=== PATIENT | female | born 1975 | race Caucasian/White ===

== ENCOUNTER 2020-03-21 07:16 | Emergency (ER) | payer MEDICAID, SELFPAY ==
--- NOTE | ~2020-03-21 | XR_ITS ---
EXAMINATION: XR SHOULDER, LEFT CLINICAL INFORMATION: Left shoulder pain COMPARISON: None TECHNIQUE: AP external rotation, Grashey, scapular Y, and axillary views of the left shoulder. FINDINGS: There is nondisplaced fracture left acromion. The AC joint and the glenohumeral joint space is normal. The soft tissues are normal. XR/XR shoulder LT min 2V IMPRESSION: Nondisplaced fracture left acromion.
[2020-03-21 07:59] VITALS: BP 141/75; PULSE 68; RESP 18; O2SAT 99; BMI 30.2
--- NOTE | 2020-03-21 09:18 | ED_ITS ---
HPI - Extremity Problem General Chief complaint: Extremity Problem Stated complaint: L SHOULDER PAIN Time Seen by Provider: 03/21/20 08:15 Source: patient Mode of arrival: ambulatory Limitations: no limitations History of Present Illness HPI Narrative: 45-year-old female presenting to the ED with complaints of left shoulder pain for the past few months worse today. She reports that she had this in the past when she used to work for [employer] although she went to physical therapy and her symptoms improved moderately although not completely. Although now she is working for [employer] and due to heavy lifting and repetitive hand/arm movements she has been having pain. Although denies any falls or direct injuries to the actual joint of the left shoulder. Denies any fevers, neck pain/stiffness, paresthesias, numbness/tingling, chest pain, shortness of breath, palpitations, dyspnea on exertion, orthopnea or any other symptoms complaints or concerns at this time. MD Complaint: extremity pain Onset (ago): month(s) (A few months worse today) Pain Consistency: constant Location: left Quality: aching Relieving factors: nothing Exacerbating factors: range of motion Associated symptoms: denies other symptoms Related Data Previous Rx's Medication Instructions Recorded acetaminophen [Tylenol Extra 1,000 mg PO QID PRN #14 tab 03/21/20 Strength] cyclobenzaprine 10 mg PO TID PRN #10 tab 03/21/20 ibuprofen 800 mg PO Q8H PRN #14 tab 03/21/20 lidocaine [Lidoderm] 1 patch TOPICAL DAILY #15 ea 03/21/20 oxycodone 5 mg PO BID PRN #10 tab 03/21/20 Allergies Allergy/AdvReac Type Severity Reaction Status Date / Time No Known Allergies Allergy Unverified 10/25/19 15:57 [No Known Allergies*] Review of Systems Review of Systems: Constitutional : No Fever, No Chills ENT/Mouth : No Ear Pain, No Hoarseness, No sore throat Eyes: No Eye Pain, No Swelling, No Redness, No Foreign Body Cardiovascular : No Chest Pain, No SOB Respiratory : No Cough, No Dyspnea Gastrointestinal : No Nausea, No Vomiting, No Diarrhea, No abdominal Pain Genitourinary : No Dysuria, No Hematuria Musculoskeletal : + joint pain, No Myalgias, No Joint Swelling Skin : No Skin lacerations, No rash Neuro : No Weakness, No Numbness, No Paresthesias, No Loss of Consciousness, No Dizziness, No Headache Psych : No Anxiety/Panic, No Depression Heme/Lymph: no easy bruising, no Lymphadenopathy Endocrine : No Polyuria, No Polydipsia Yes all other systems are reviewed and are negative [facility] Past Medical History Attestation statement: The following information was validated with the patient. Medical History Acute injury of anterior cruciate ligament of right knee Acute injury of anterior cruciate ligament of right knee Depression Left shoulder strain Social History Social History Advance Directives: No Advance Directives Information Provided: Yes Physical Exam Vital Signs: Vital Signs: Last Vital Signs Pulse 68 03/21/20 07:59 Resp 18 03/21/20 07:59 BP 141/75 H 03/21/20 07:59 Pulse Ox 99 03/21/20 07:59 Body Mass Index 30.2 vital signs have been reviewed as normal and appeared to be correct. Blood pressure normal. Heart rate normal. Respiration rate normal. Temperature normal. Oxygen saturation normal. Appearance: Alert. Oriented X3. No acute distress. Head: Normal external exam. Normocephalic. Atraumatic. Eyes: PERRLA. EOMI. Conjunctiva and sclera normal. Eyelids normal. ENT: Pharynx normal. Uvula midline. Moist mucous membranes. No trismus noted. No drooling noted. No muffled voice noted. Neck: Normal inspection. Neck supple. FROM. No adenopathy. Thyroid Normal. No meningeal signs. No neck mass noted. CVS: Normal heart rate and rhythm. Heart sound normal. No murmurs noted. Pulses normal throughout. Respiratory: No respiratory distress. Painless inspiration. Breath sounds normal. No wheezes/rales/rhonchi noted. Chest nontender. No accessory muscle usage noted or decreased air movement noted. Back: Full range of motion noted. Skin: Skin warm and dry. Normal skin color. Normal skin turgor. No rashes/lesions/lacerations noted. Extremities: Patient tender to palpation at the AC joint with limited range of motion with internal abduction although normal range of motion for the rest of the exam. No obvious deformities noted. No crepitus noted. No laxity noted. Otherwise Extremities exhibit normal range of motion and nontender. Neuro: Oriented X 3. No motor deficit. No sensory deficit. Reflexes normal. Course Course Course Narrative: Patient had an x-ray to left shoulder which revealed nondisplaced fracture of the acromion Adonsi and GH joint spaces normal read by Dr. Saul. Will place in a splint and treat symptomatic Isabel give a work note and instructions to follow-up with orthopedics within the next 7-14 days. Patient understands agrees with this plan. MDM - Extremity (Nontraumatic) Medical Records Attestation: I reviewed the patient's medical records. Discharge Plan Discharge Clinical Impression: Acromial fracture Qualifiers: Encounter type: initial encounter Fracture type: closed Fracture alignment: nondisplaced Laterality: left Qualified Code(s): S42.125A - Nondisplaced fracture of acromial process, left shoulder, initial encounter for closed fracture Patient Disposition: Home, Self-Care Instructions: Scapular Fracture (ED) Prescriptions: New cyclobenzaprine 10 mg tablet 10 mg PO TID PRN (Reason: muscle spasm) Qty: 10 RF: 0 ibuprofen 800 mg tablet 800 mg PO Q8H PRN (Reason: pain) Qty: 14 RF: 0 acetaminophen [Tylenol Extra Strength] 500 mg tablet 1,000 mg PO QID PRN (Reason: fever or pain) Qty: 14 RF: 0 lidocaine [Lidoderm] 5 % adhesive patch,medicated 1 patch topical DAILY Qty: 15 RF: 0 oxycodone 5 mg tablet 5 mg PO BID PRN (Reason: pain) Qty: 10 RF: 0 Referrals: Ryan Mendieta MD [Physician] - 2 days Stand Alone Forms: Work/School Release Interventions: ED Discharge Assessment Last Done: 03/21/20 10:06 Discharge Date/Time: 03/21/20 10:07 Print Language: Russian
== END 2020-03-21 10:07 | disposition home or self-care (01) ==
PROVIDERS: Emergency Provider Emergency Medicine Emergency Medical Services; PCP Nurse Practitioner Family
DX: S42.125A Nondisplaced fracture of acromial process, left shoulder, initial encounter for closed fracture (principal); X50.0XXA Overexertion from strenuous movement or load, initial encounter; Y93.89 Activity, other specified; Y92.89 Other specified places as the place of occurrence of the external cause; Y99.0 Civilian activity done for income or pay
CPT/HCPCS: 73030; 99283

== ENCOUNTER 2020-04-10 20:35 | Emergency (ER) | payer MEDICAID, SELFPAY ==
--- NOTE | ~2020-04-10 | XR_ITS ---
EXAMINATION: XR SHOULDER, RIGHT CLINICAL INFORMATION: Pain status post injury COMPARISON: None TECHNIQUE: Two views of the right shoulder. FINDINGS: The bones and soft tissues are normal. No fracture. Glenohumeral and acromioclavicular alignment is anatomic with normal joint space. No abnormal soft tissue calcifications. XR/XR shoulder RT min 2V IMPRESSION: Normal right shoulder.
[2020-04-10 21:07] VITALS: BP 147/69; PULSE 71; RESP 16; TEMP 37.2; O2SAT 98; BMI 30.2
--- NOTE | 2020-04-10 21:54 | ED.EXTPRO ---
HPI - Extremity Problem General Chief complaint: Extremity Injury, Upper Stated complaint: WORK INJ - SHOULDER Time Seen by Provider: 04/10/20 21:32 Source: patient Mode of arrival: ambulatory Limitations: no limitations History of Present Illness HPI Narrative: 45-year-old female with past medical history of left acromion fracture presents with right shoulder pain after lifting heavy objects. Patient is in a sling for the left arm for current injury, states that she was trying to move some things around and heard a pop to the right shoulder. Patient is unable to abduct the right extremity past 90?. MD Complaint: extremity pain Onset (ago): hour(s) (Within the hour of arrival) Pain Consistency: constant Location: right Severity scale (1-10): 9 Quality: aching and constant Radiation: proximal Relieving factors: other (Pressure) Exacerbating factors: range of motion Associated symptoms: denies other symptoms Related Data Previous Rx's Medication Instructions Recorded acetaminophen [Tylenol Extra 1,000 mg PO QID PRN #14 tab 03/21/20 Strength] cyclobenzaprine 10 mg PO TID PRN #10 tab 03/21/20 ibuprofen 800 mg PO Q8H PRN #14 tab 03/21/20 lidocaine [Lidoderm] 1 patch TOPICAL DAILY #15 ea 03/21/20 oxycodone 5 mg PO BID PRN #10 tab 03/21/20 cyclobenzaprine 10 mg PO TID PRN #30 tab 04/10/20 Allergies Allergy/AdvReac Type Severity Reaction Status Date / Time No Known Allergies Allergy Verified 04/10/20 21:16 [No Known Allergies*] Review of Systems Review of Systems: Constitutional: No Fever, No Chills ENT/Mouth: No Ear Pain, No Hoarseness, No sore throat Eyes: No Eye Pain, No Swelling, No Redness, No Foreign Body Cardiovascular: No Chest Pain, No SOB Respiratory: No Cough, No Dyspnea Gastrointestinal: No Nausea, No Vomiting, No Diarrhea, No abdominal Pain Genitourinary: No Dysuria, No Hematuria Musculoskeletal: positive right shoulder pain, No Myalgias, No Joint Swelling Skin: No Skin lacerations, No rash Neuro: No Weakness, No Numbness, No Paresthesias, No Loss of Consciousness, No Dizziness, No Headache Psych: No Anxiety/Panic, No Depression Heme/Lymph: no easy bruising, no Lymphadenopathy Endocrine: No Polyuria, No Polydipsia Yes all other systems are reviewed and are negative [facility] Past Medical History Attestation statement: The following information was validated with the patient. Source: old records reviewed Medical History Acute injury of anterior cruciate ligament of right knee Acute injury of anterior cruciate ligament of right knee Depression Left shoulder strain Social History Social History Smoked in Last 30 Days: No Use of substances other than those prescribed or required for medical reasons: No Advance Directives: No Advance Directives Information Provided: No Physical Exam Vital Signs: Vital Signs: Last Vital Signs Temp 98.9 F 04/10/20 21:07 Pulse 71 04/10/20 21:07 Resp 16 04/10/20 21:07 BP 147/69 H 04/10/20 21:07 Pulse Ox 98 04/10/20 21:07 Body Mass Index 30.2 Appearance: Alert. Oriented X3. No acute distress. Eyes: Pupils equal, round and reactive to light. ENT: Pharynx normal. Neck: Normal inspection. Neck supple. CVS: Normal heart rate and rhythm. Pulses normal. Respiratory: No respiratory distress. Breath sounds normal. Abdomen: Soft and nontender. Skin: Skin warm and dry. Normal skin color. Normal skin turgor. Extremities: Left arm in a sling secondary to acromion avulsion fracture, right arm decreased range of motion for abduction adduction between 85? and 110?, decreased flexion and extension, strength 5/5 to the hand, able to pronate and supinate without difficulty. Brisk capillary refill neurovascularly intact. Neuro: No motor deficit. No sensory deficit. Cranial nerves 2-12 intact, gait well balanced well coordinated Course Course Course Narrative: 45-year-old female presents with a right shoulder injury currently in a sling for a left acromion avulsion fracture. Is being followed by doing with Orthopedics. Injury was sustained from moving heavy objects earlier today. Plan of care is for x-ray. X-ray negative for fracture, this is suspected labrum or rotator cuff injury. Will apply sling, patient does understand that she must follow-up with Orthopedics as she has bilateral shoulder injuries. She will call her current surgeon and request an evaluation tomorrow. We will refill her cyclobenzaprine prescription. Currently out of work due to other injury. Patient verbalized understanding of and agrees to plan of care to discharge home. MDM - Extremity (Nontraumatic) MDM Narrative Medical decision making narrative: Labrum tear, rotator cuff injury, avulsion fracture, dislocation, arthritis Medical Records Attestation: I reviewed the patient's medical records. Imaging Data Right shoulder: Attestation: I personally reviewed and interpreted this imaging study as follows: Radiologist's impression: EXAMINATION: XR SHOULDER, RIGHT CLINICAL INFORMATION: Pain status post injury COMPARISON: None TECHNIQUE: Two views of the right shoulder. FINDINGS: The bones and soft tissues are normal. No fracture. Glenohumeral and acromioclavicular alignment is anatomic with normal joint space. No abnormal soft tissue calcifications. XR/XR shoulder RT min 2V IMPRESSION: Normal right shoulder. Discharge Plan Discharge Clinical Impression: Rotator cuff dysfunction Patient Disposition: Home, Self-Care Instructions: Rotator Cuff Injury (ED) Additional Instructions: You were evaluated for injury sustained at work to the right rotator cuff. Please follow-up with orthopedics. Wear shoulder immobilizer as needed. Follow-up with your orthopedic surgeon. Use cyclobenzaprine as needed for muscle spasms. Cyclobenzaprine is a muscle relaxer and can reduce reaction time, cause drowsiness, and increased risk for falls. Do not drive or operate machinery while taking this medication. Thank you for choosing this emergency department for evaluation. Please follow-up with primary care physician as needed. Return to the emergency department for any new, concerning, or worsening symptoms. Prescriptions: New cyclobenzaprine 10 mg tablet 10 mg PO TID PRN (Reason: muscle spasm) Qty: 30 RF: 0 No Action cyclobenzaprine 10 mg tablet 10 mg PO TID PRN (Reason: muscle spasm) Qty: 10 RF: 0 ibuprofen 800 mg tablet 800 mg PO Q8H PRN (Reason: pain) Qty: 14 RF: 0 acetaminophen [Tylenol Extra Strength] 500 mg tablet 1,000 mg PO QID PRN (Reason: fever or pain) Qty: 14 RF: 0 lidocaine [Lidoderm] 5 % adhesive patch,medicated 1 patch topical DAILY Qty: 15 RF: 0 oxycodone 5 mg tablet 5 mg PO BID PRN (Reason: pain) Qty: 10 RF: 0 Interventions: ED Discharge Assessment Last Done: 04/10/20 22:18 Discharge Date/Time: 04/10/20 22:22
== END 2020-04-10 22:22 | disposition home or self-care (01) ==
PROVIDERS: Emergency Provider Internal Medicine
DX: S49.91XA Unspecified injury of right shoulder and upper arm, initial encounter (principal); M75.101 Unspecified rotator cuff tear or rupture of right shoulder, not specified as traumatic; X50.0XXA Overexertion from strenuous movement or load, initial encounter; Y93.9 Activity, unspecified; Y99.0 Civilian activity done for income or pay; Y99.9 Unspecified external cause status; Z79.899 Other long term (current) drug therapy
CPT/HCPCS: 73030; 99283; 99284

== ENCOUNTER 2020-07-17 14:25 | Emergency (ER) | payer MEDICAID, SELFPAY ==
--- NOTE | ~2020-07-17 | XR_ITS ---
EXAMINATION: XR ANKLE, LEFT CLINICAL INFORMATION: Trauma, pain COMPARISON: None TECHNIQUE: AP, lateral, and mortise views of the left ankle. FINDINGS: There is mild soft tissue swelling overlying the lateral malleolus. The malleoli appear intact and the ankle mortise is symmetric. There is no visible fracture or dislocation. There are bulky posterior and smaller plantar calcaneal spurs. XR/XR ankle LT min 3V IMPRESSION: 1. Lateral soft tissue swelling. No visible fracture or dislocation. 2. Posterior and plantar calcaneal spurs.
[2020-07-17 14:36] VITALS: BP 119/86; PULSE 76; RESP 18; TEMP 36.6; O2SAT 96; BMI 30.2
--- NOTE | 2020-07-17 17:12 | ED.LOWEXIN ---
HPI - Extremity Injury (Lower) General Chief Complaint: Extremity Injury, Lower Stated Complaint: left foot pain Time Seen by Provider: 07/17/20 15:50 Source: patient Mode of arrival: ambulatory Limitations: no limitations History of Present Illness HPI Narrative: 45-year-old female who presents to the emergency department with left ankle injury. Patient states on Tuesday she fell going down the stairs and twisted her left ankle. Since has had pain and discomfort. States she has tried elevation ice and compression without significant improvement. Due to concern she felt she needed to be seen. Patient is prescribed oxycodone for left shoulder injury for which she has been taking with minimal relief. Denies head injury or trauma from fall denies any other complaints or concerns that are new at this time. Related Data Previous Rx's Medication Instructions Recorded acetaminophen [Tylenol Extra 1,000 mg PO QID PRN #14 tab 03/21/20 Strength] cyclobenzaprine 10 mg PO TID PRN #10 tab 03/21/20 ibuprofen 800 mg PO Q8H PRN #14 tab 03/21/20 lidocaine [Lidoderm] 1 patch TOPICAL DAILY #15 ea 03/21/20 oxycodone 5 mg PO BID PRN #10 tab 03/21/20 cyclobenzaprine 10 mg PO TID PRN #30 tab 04/10/20 Allergies Allergy/AdvReac Type Severity Reaction Status Date / Time No Known Allergies Allergy Verified 04/10/20 21:16 [No Known Allergies*] Review of Systems Review of Systems: Constitutional : No Weight loss, No Fever, No Chills, No Night Sweats, No Fatigue, No Malaise ENT/Mouth : No Hearing loss, No Ear Pain, No Nasal Congestion, No Sinus Pain, No Hoarseness, No sore throat, No Rhinorrhea, No Swallowing Difficulty Eyes: No Eye Pain, No Swelling, No Redness, No Foreign Body, No Discharge, No Vision Changes Cardiovascular : No Chest Pain, No SOB, No Dyspnea on Exertion, No Orthopnea, No Edema, No Palpitations Respiratory : No Cough, No Sputum, No Wheezing, No Smoke Exposure, No Dyspnea Gastrointestinal : No Nausea, No Vomiting, No Diarrhea, No Constipation, No abdominal Pain, No Hematochezia, No Melena Genitourinary : no irregular bleeding, No Dysuria, No Urinary Frequency, No Hematuria, No Urinary Incontinence, No Urgency, No Flank Pain, No Urinary Flow Changes, No Hesitancy Musculoskeletal : + joint pain, No Myalgias, + Joint Swelling Skin : No Skin Lesions, No rash Neuro : No Weakness, No Numbness, No Paresthesias, No Loss of Consciousness, No Dizziness, No Headache Psych : No Anxiety/Panic, No Depression, No SI/HI/AH/VH, No Social Issues, Heme/Lymph: No Bruising, No Bleeding,No Lymphadenopathy Endocrine : No Polyuria, No Polydipsia, No Temperature Intolerance [facility] Past Medical History Attestation statement: The following information was validated with the patient. Source: old records reviewed and nursing notes reviewed Medical History Acute injury of anterior cruciate ligament of right knee Acute injury of anterior cruciate ligament of right knee Depression Left shoulder strain Social History Social History Advance Directives: No Advance Directives Information Provided: No Patient : No Physical Exam Vital Signs: Vital Signs: Last Vital Signs Temp 97.9 F 07/17/20 14:36 Pulse 76 07/17/20 14:36 Resp 18 07/17/20 14:36 BP 119/86 07/17/20 14:36 Pulse Ox 96 07/17/20 14:36 Body Mass Index 30.2 vital signs have been reviewed as normal and appeared to be correct. Blood pressure normal. Heart rate normal. Respiration rate normal. Temperature normal. Oxygen saturation normal. Appearance: Alert. Oriented X3. No acute distress. Head: Normal external exam. Normocephalic. Atraumatic. No Cardenas signs noted. No raccoon eyes noted Eyes: Conjunctiva and sclera normal. ENT: EAC normal. Moist mucous membranes. No drooling noted. No muffled voice noted. Neck: Normal inspection. Neck supple. FROM. No meningeal signs. CVS: Pulses normal throughout. Respiratory: No respiratory distress. Painless inspiration. No accessory muscle usage noted Abdomen: No visible injury noted. Back: Full range of motion noted. Skin: Skin warm and dry. Normal skin color. Normal skin turgor. Extremities: Mild lower extremity edema to left lateral malleolus. Slight limitation in ROM to left ankle due to pain. Good distal pulse, good capillary refill. No tenderness to tibia/fibula. Achilles tendon is intact Neuro: Oriented X 3. No motor deficit. No sensory deficit. Course Reevaluation(s) Reevaluation #1: X-ray negative for fracture dislocation feel that discharge is safe with close outpatient follow-up Aircast and return precautions patient is comfortable with this plan. MDM - Extremity Injury (Lower) MDM Narrative Medical decision making narrative: Patient's vital signs are stable and she is afebrile. Patient presenting to the ED with left ankle injury and continued pain. An x-ray will be obtained to look for evidence fracture dislocation. Patient already took some oxycodone prior to arrival did not feel she needs additional pain medications here pleural is otherwise neurovascularly intact without tenderness over the cespedes or knee. No other signs of injury or trauma will continue monitor pending. Discharge Plan Discharge Clinical Impression: Ankle sprain and strain Patient Disposition: Home, Self-Care Instructions: Ankle Sprain (ED) Additional Instructions: You were seen in the emergency department today for left ankle injury and x-ray was taken without evidence of fracture or dislocation. He will be given an air splint for comfort and help prevent re-injury please continue home pain medications. Follow-up with your doctor if pain persists. Prescriptions: No Action cyclobenzaprine 10 mg tablet 10 mg PO TID PRN (Reason: muscle spasm) Qty: 10 RF: 0 ibuprofen 800 mg tablet 800 mg PO Q8H PRN (Reason: pain) Qty: 14 RF: 0 acetaminophen [Tylenol Extra Strength] 500 mg tablet 1,000 mg PO QID PRN (Reason: fever or pain) Qty: 14 RF: 0 lidocaine [Lidoderm] 5 % adhesive patch,medicated 1 patch topical DAILY Qty: 15 RF: 0 oxycodone 5 mg tablet 5 mg PO BID PRN (Reason: pain) Qty: 10 RF: 0 cyclobenzaprine 10 mg tablet 10 mg PO TID PRN (Reason: muscle spasm) Qty: 30 RF: 0 Referrals: Ange Meyer [employer] [Primary Care Provider] - 2 days Interventions: ED Discharge Assessment Last Done: 07/17/20 17:36 Discharge Date/Time: 07/17/20 17:37 Print Language: Cymraes
== END 2020-07-17 17:37 | disposition home or self-care (01) ==
PROVIDERS: Emergency Provider Emergency Medicine Emergency Medical Services; PCP Nurse Practitioner Family
DX: S93.402A Sprain of unspecified ligament of left ankle, initial encounter (principal); S96.912A Strain of unspecified muscle and tendon at ankle and foot level, left foot, initial encounter; W10.8XXA Fall (on) (from) other stairs and steps, initial encounter; Y93.9 Activity, unspecified; Y92.9 Unspecified place or not applicable; Y99.9 Unspecified external cause status
CPT/HCPCS: 73610; 99283; 99284

== ENCOUNTER 2020-12-25 17:42 | Emergency (ER) | payer OTHER, MEDICAID, SELFPAY ==
--- NOTE | ~2020-12-25 | XR_ITS ---
EXAMINATION: XR SHOULDER, RIGHT CLINICAL INFORMATION: Decreased range of motion. COMPARISON: 04/10/2020. TECHNIQUE: Three views of the right shoulder. FINDINGS: The bones and soft tissues are normal. No fracture. Glenohumeral and acromioclavicular alignment is anatomic with normal joint space. No abnormal soft tissue calcifications. XR/XR shoulder RT min 2V IMPRESSION: Normal right shoulder.
[2020-12-25 19:46] VITALS: BP 121/56; PULSE 65; RESP 18; TEMP 36.8; O2SAT 99; BMI 29.7
--- NOTE | 2020-12-25 21:12 | ED.EXTPRO ---
HPI - Extremity Problem General Chief complaint: Extremity Injury, Upper Stated complaint: Right arm injury @ work Time Seen by Provider: 12/25/20 21:12 Source: patient Mode of arrival: ambulatory Limitations: no limitations History of Present Illness HPI Narrative: 45-year-old female came in for worsening of her right shoulder pain. 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 Related Data Previous Rx's Medication Instructions Recorded acetaminophen 500 mg tablet 1,000 mg PO QID PRN #14 tab 03/21/20 (Tylenol Extra Strength) cyclobenzaprine 10 mg tablet 10 mg PO TID PRN #10 tab 03/21/20 ibuprofen 800 mg tablet 800 mg PO Q8H PRN #14 tab 03/21/20 lidocaine 5 % topical patch 1 patch TOPICAL DAILY #15 ea 03/21/20 (Lidoderm) oxycodone 5 mg tablet 5 mg PO BID PRN #10 tab 03/21/20 cyclobenzaprine 10 mg tablet 10 mg PO TID PRN #30 tab 04/10/20 oxycodone-acetaminophen 5 mg-325 1 tab PO TID PRN #7 tab 12/25/20 mg tablet (Percocet) Allergies Allergy/AdvReac Type Severity Reaction Status Date / Time No Known Allergies Allergy Verified 04/10/20 21:16 [No Known Allergies*] Review of Systems Review of Systems: All other systems are reviewed and are negative Constitutional: Reports as per HPI and Reports no additional constitutional complaints Eyes: Reports as per HPI and Reports no additional eye complaints Reports system reviewed and no additional complaints, except as documented Cardiovascular: Reports as per HPI and Reports no additional cardiovascular complaints Respiratory: Reports as per HPI and Reports no additional respiratory complaints Gastrointestinal: Reports as per HPI and Reports no additional gastrointestinal complaints Genitourinary: Reports no additional female genitourinary complaints Musculoskeletal: Reports no additional musculoskeletal complaints Skin/Breast: Reports system reviewed and no additional complaints, except as docu Psychiatric: Reports no additional psychiatric complaints Endocrine: Reports no additional endocrine complaints Hematologic/Lymphatic: Reports no additional hematologic/lymphatic complaints Allergic/Immunologic: Reports no additional allergic/immunologic complaints Reports system reviewed and no additional complaints, except as documented and Reports Abnormal speech present [facility] Past Medical History Medical History Acute injury of anterior cruciate ligament of right knee Acute injury of anterior cruciate ligament of right knee Depression Left shoulder strain Social History Social History Advance Directives: No Advance Directives Information Provided: No Patient : No Physical Exam Vital Signs: Vital Signs: Last Vital Signs Temp 98.2 F 12/25/20 19:46 Pulse 65 12/25/20 19:46 Resp 18 12/25/20 19:46 BP 121/56 L 12/25/20 19:46 Pulse Ox 99 12/25/20 19:46 Body Mass Index 29.7 Vital signs have been reviewed as appeared to be correct. Blood pressure normal. Heart rate normal. Respiration rate normal. Temperature normal. Oxygen saturation normal. Appearance: Alert. Oriented X3. No acute distress. Head: Normal external exam. Normocephalic. Atraumatic. No Cardenas signs noted. No raccoon eyes noted Eyes: PERRLA. EOMI. Conjunctiva and sclera normal. Eyelids normal. ENT: TM's Normal. Pharynx normal. Uvula midline. Moist mucous membranes. No trismus noted. No drooling noted. No muffled voice noted. Neck: Normal inspection. Neck supple. FROM. No adenopathy. Thyroid Normal. No meningeal signs. No neck mass noted. CVS: Normal heart rate and rhythm. Heart sound normal. No murmurs noted. Pulses normal throughout. Respiratory: No respiratory distress. Painless inspiration. Breath sounds normal. No wheezes/rales/rhonchi noted. Chest nontender. No accessory muscle usage noted or decreased air movement noted. Abdomen: Soft and nontender. Bowel sounds normal in all 4 quadrants. No distention noted. No organomegaly noted. No visible injury noted. Back: No CVA tenderness. Full range of motion noted. Skin: Skin warm and dry. Normal skin color. Normal skin turgor. No rashes/lesions/lacerations noted. Extremities: Right shoulder held in adduction position, tender abduction at 30 degree, no step-off, no anterior fullness, no deformity, normal neurovascular exam. Neuro: Oriented X 3. Cranial nerve exam: II-XII are grossly intact No motor deficit. No sensory deficit. Reflexes normal. Course Course Course Narrative: Assessment and plan. 45-year-old female came in with worsening of her right shoulder pain as a result of work injury, patient already had left shoulder rotator cuff repair, awaiting to see her orthopedic for re-evaluation of her right shoulder for surgery. Will prescribe Percocet to help patient with pain. MDM - Extremity (Nontraumatic) Imaging Data Right shoulder x-ray: Radiologist's impression: Normal right shoulder x-ray. Discharge Plan Discharge Clinical Impression: Injury of right rotator cuff Qualifiers: Encounter type: initial encounter Qualified Code(s): S46.001A - Unspecified injury of muscle(s) and tendon(s) of the rotator cuff of right shoulder, initial encounter Patient Disposition: Home, Self-Care Instructions: Rotator Cuff Tendinitis (ED) Prescriptions: New oxycodone-acetaminophen [Percocet] 5-325 mg tablet 1 tab PO TID PRN (Reason: pain) Qty: 7 RF: 0 No Action cyclobenzaprine 10 mg tablet 10 mg PO TID PRN (Reason: muscle spasm) Qty: 10 RF: 0 ibuprofen 800 mg tablet 800 mg PO Q8H PRN (Reason: pain) Qty: 14 RF: 0 acetaminophen [Tylenol Extra Strength] 500 mg tablet 1,000 mg PO QID PRN (Reason: fever or pain) Qty: 14 RF: 0 lidocaine [Lidoderm] 5 % adhesive patch,medicated 1 patch topical DAILY Qty: 15 RF: 0 oxycodone 5 mg tablet 5 mg PO BID PRN (Reason: pain) Qty: 10 RF: 0 cyclobenzaprine 10 mg tablet 10 mg PO TID PRN (Reason: muscle spasm) Qty: 30 RF: 0
== END 2020-12-25 21:35 | disposition home or self-care (01) ==
PROVIDERS: Emergency Provider Emergency Medicine; PCP Nurse Practitioner Family
DX: S46.001A Unspecified injury of muscle(s) and tendon(s) of the rotator cuff of right shoulder, initial encounter (principal); X50.0XXA Overexertion from strenuous movement or load, initial encounter; Y93.89 Activity, other specified; Y92.812 Truck as the place of occurrence of the external cause; Y99.0 Civilian activity done for income or pay
CPT/HCPCS: 73030; 99283

== ENCOUNTER 2021-03-27 10:16 | Emergency (ER) | payer OTHER, MEDICAID, SELFPAY ==
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
[2021-03-27 10:31] VITALS: BP 158/87; PULSE 89; RESP 16; TEMP 37.2; O2SAT 98; BMI 29.0
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
== END 2021-03-27 14:10 | disposition home or self-care (01) ==
PROVIDERS: Emergency Provider Emergency Medicine; PCP Nurse Practitioner Family
DX: S13.4XXA Sprain of ligaments of cervical spine, initial encounter (principal); S46.912A Strain of unspecified muscle, fascia and tendon at shoulder and upper arm level, left arm, initial encounter; S46.911A Strain of unspecified muscle, fascia and tendon at shoulder and upper arm level, right arm, initial encounter; V40.5XXA Car driver injured in collision with pedestrian or animal in traffic accident, initial encounter; Y93.89 Activity, other specified; Y92.410 Unspecified street and highway as the place of occurrence of the external cause; Y99.9 Unspecified external cause status
CPT/HCPCS: 72125; 73030; 99283; 99284

== ENCOUNTER 2022-08-24 17:35 | Emergency (ER) | payer MEDICAID, SELFPAY ==
--- NOTE | 2022-08-24 18:36 | ED.DENTAL ---
HPI - Dental/Oral General Chief complaint: Dental/Oral Stated complaint: toothache Time Seen by Provider: 08/24/22 18:40 Source: patient Mode of arrival: ambulatory Limitations: no limitations History of Present Illness HPI Narrative: 47-year-old female here with 3 days of right lower dental pain. Patient reports prior dental work in this area. No fevers, chills, difficulty swallowing, difficulty breathing Related Data Previous Rx's Medication Instructions Recorded acetaminophen 500 mg tablet 1,000 mg PO QID PRN fever or pain 03/21/20 (Tylenol Extra Strength) #14 tabs cyclobenzaprine 10 mg tablet 10 mg PO TID PRN muscle spasm #10 03/21/20 tabs ibuprofen 800 mg tablet 800 mg PO Q8H PRN pain #14 tabs 03/21/20 lidocaine 5 % topical patch 1 patch topical DAILY pain #15 ea 03/21/20 (Lidoderm) oxycodone 5 mg tablet 5 mg PO BID PRN pain #10 tabs 03/21/20 cyclobenzaprine 10 mg tablet 10 mg PO TID PRN muscle spasm #30 04/10/20 tabs oxycodone-acetaminophen 5 mg-325 1 tab PO TID PRN pain #7 tabs 12/25/20 mg tablet (Percocet) cyclobenzaprine 10 mg tablet 10 mg PO Q8H PRN Muscle spasm #14 03/27/21 tabs naproxen 500 mg tablet 500 mg PO BID PRN pain #14 tabs 03/27/21 clindamycin HCl 150 mg capsule 150 mg PO TID #21 caps 08/24/22 Allergies Allergy/AdvReac Type Severity Reaction Status Date / Time No Known Allergies Allergy Verified 04/10/20 21:16 [No Known Allergies*] Review of Systems Review of Systems: Yes all other systems are reviewed and are negative Constitutional: Constitutional: Reports no additional constitutional complaints, Denies body ache(s), Denies chills, Denies fever(s), Denies headache(s) and Denies weakness Eyes: Eyes: Reports no additional eye complaints and Denies change in vision ENT: Reports system reviewed and no additional complaints, except as documented, Reports dental pain, Denies dizziness, Denies headache(s), Denies nasal congestion, Denies nasal discharge and Denies neck pain Cardiovascular: Cardiovascular: Reports no additional cardiovascular complaints, Denies chest pain, Denies leg edema and Denies dyspnea Respiratory: Respiratory: Reports no additional respiratory complaints, Denies cough and Denies dyspnea Gastrointestinal: Gastrointestinal: Reports no additional gastrointestinal complaints, Denies abdominal pain, Denies diarrhea, Denies nausea and Denies vomiting Genitourinary: Genitourinary: Reports no additional female genitourinary complaints and Denies urinary incontinence Musculoskeletal: Musculoskeletal: Reports no additional musculoskeletal complaints, Denies back pain, Denies arthralgias, Denies joint swelling, Denies neck pain, Denies numbness and Denies tingling Integumentary/Breasts: Skin/Breast: Reports system reviewed and no additional complaints, except as docu and Denies rash Neurologic: Reports system reviewed and no additional complaints, except as documented, Denies Abnormal speech present, Denies dizziness, Denies headache(s), Denies numbness, Denies tingling and Denies weakness PMFSH Past Medical History Attestation statement: The following information was validated with the patient. Source: old records reviewed and nursing notes reviewed Medical History Acute injury of anterior cruciate ligament of right knee Acute injury of anterior cruciate ligament of right knee Depression Left shoulder strain Social History Social History Advance Directives: No Advance Directives Information Provided: No Physical Exam Vital Signs: Vital Signs: Last Vital Signs Temp 98.1 F 08/24/22 18:37 Pulse 61 08/24/22 18:37 Resp 20 08/24/22 18:37 BP 133/65 08/24/22 18:37 Pulse Ox 99 08/24/22 18:37 O2 Del Method Room Air 08/24/22 18:37 BMI result Body Mass Index 29.6 Const: General: cooperative, healthy appearing, comfortable and no acute distress Orientation/consciousness: patient oriented x3 Limitations: no limitations HEENT: Other: There are dental caries throughout. There are absent teeth throughout There is no trismus There is no sub mandibular swelling or tongue deviation Head: Yes normal to inspection Ears: hearing grossly normal bilaterally General nose exam: Normal external nose present Face and sinus: Yes normal facial exam Mouth: Normal oral and palatal mucosa present Teeth image: 1. The base the tooth there is dental caries At the gum line there is erythema and swelling with no palpable abscess Throat: Yes posterior oropharynx normal Eyes: General: appearance normal, both eyes and all related structures Pupils: Equal, round and reactive pupils present Neck: Neck: Yes normal visual inspection, Yes full ROM and Yes no lymphadenopathy Chest: Chest palpation & inspection: normal inspection of the chest Resp: Effort & Inspection: normal respiratory effort Auscultation: clear to auscultation bilaterally Cardio: Rate: regular rate Rhythm: regular rhythm Peripheral pulses: Peripheral pulses 2+ throughout GI: Inspection: Yes normal to inspection Palpation (GI): Soft to palpation and nontender Auscultation: normal bowel sounds Back/Spine/Pelvis: Thoracic/Lumbar Spine: thoracic and lumbar spine normal to inspection Skin: General skin exam: no rashes or lesions noted Neuro: General: patient oriented x3, no focal motor deficits and normal sensation to monofilament Cranial nerves: Yes Equal, round and reactive pupils present Cognition (Neuro): normal cognition Speech: No Abnormal speech present Gait exam (Neuro): Normal gait present Motor exam (neuro): 5/5 motor strength present throughout Extrem: General: Yes normal to inspection Medical Decision Making Medical Decision Making [facility] Narrative: 47-year-old female here with right lower dental pain for several days On exam there are dental caries, with some local gum line erythema and swelling with no obvious abscess No trismus on exam Patient tolerating secretions with no difficulty Will provide prescription for antibiotic and recommend patient follow-up with dental clinic outpatient She can continue alternating Motrin and Tylenol as needed Differential Diagnosis Differential Diagnoses: The differential diagnosis associated with the presentation includes Dental infection, dental abscess Denis's angina, osteomyelitis Prescription Management I considered prescription management with: Antibiotic see discussion above Discharge Plan Discharge Clinical Impression: Pain, dental Patient Disposition: Home, Self-Care Instructions: Toothache (ED) Additional Instructions: Alternate motrin/tylenol for pain Salt water gargles Continue oragel Call your dentist for pain as needed Prescriptions: New clindamycin HCl 150 mg capsule 150 mg PO TID Qty: 21 0RF No Action cyclobenzaprine 10 mg tablet 10 mg PO TID PRN (Reason: muscle spasm) Qty: 10 0RF ibuprofen 800 mg tablet 800 mg PO Q8H PRN (Reason: pain) Qty: 14 0RF acetaminophen [Tylenol Extra Strength] 500 mg tablet 1,000 mg PO QID PRN (Reason: fever or pain) Qty: 14 0RF lidocaine [Lidoderm] 5 % adhesive patch,medicated 1 patch topical DAILY Qty: 15 0RF Rx Instructions: leave on most painful area for up to 12 hrs. May be substituted oxycodone 5 mg tablet 5 mg PO BID PRN (Reason: pain) Qty: 10 0RF cyclobenzaprine 10 mg tablet 10 mg PO TID PRN (Reason: muscle spasm) Qty: 30 0RF naproxen 500 mg tablet 500 mg PO BID PRN (Reason: pain) Qty: 14 0RF cyclobenzaprine 10 mg tablet 10 mg PO Q8H PRN (Reason: Muscle spasm) Qty: 14 0RF oxycodone-acetaminophen [Percocet] 5-325 mg tablet 1 tab PO TID PRN (Reason: pain) Qty: 7 0RF Referrals: Ange Meyer, [facility] [employer] [Primary Care Provider] - 1 week Interventions: ED Discharge Assessment Last Done: 08/24/22 19:01 Discharge Date/Time: 08/24/22 19:01
[2022-08-24 18:37] VITALS: BP 133/65; PULSE 61; RESP 20; TEMP 36.7; O2SAT 99; BMI 29.6
== END 2022-08-24 19:01 | disposition home or self-care (01) ==
PROVIDERS: Emergency Provider Student in an Organized Health Care Education/Training Program; PCP Nurse Practitioner Family
DX: K02.9 Dental caries, unspecified (principal); K08.89 Other specified disorders of teeth and supporting structures; Z79.899 Other long term (current) drug therapy
CPT/HCPCS: 99282; 99283

== ENCOUNTER 2023-01-24 16:03 | Emergency (ER) | payer OTHER, SELFPAY ==
[2023-01-24 16:15] VITALS: BP 111/27; PULSE 73; RESP 16; TEMP 37.2; O2SAT 98; BMI 29.3
--- NOTE | 2023-01-24 16:20 | ED.GENADULT ---
HPI - General Adult General Chief complaint: Upper Respiratory Symptoms Stated complaint: Sore throat 3 days Time Seen by Provider: 01/24/23 21:40 Source: patient Mode of arrival: ambulatory Limitations: no limitations History of Present Illness HPI narrative: 47 yo female with PMH of depression and arthritis here with c/o sore throat, loss of voice and swollen lymph node R neck since Tuesday. No fevers, vomiting or sick contacts MD complaint: sore throat Onset (ago): day(s) (3) Location: mouth Radiation: non-radiation Severity: moderate Pain Consistency: intermittent Relieving factors: none Exacerbating factors: other (swallowing) Associated symptoms: denies other symptoms Treatments prior to arrival: none Related Data Previous Rx's Medication Instructions Recorded acetaminophen 500 mg tablet 1,000 mg (2 x 500 mg) PO QID PRN 03/21/20 (Tylenol Extra Strength) fever or pain #14 tabs cyclobenzaprine 10 mg tablet 10 mg PO TID PRN muscle spasm #10 03/21/20 tabs ibuprofen 800 mg tablet 800 mg PO Q8H PRN pain #14 tabs 03/21/20 lidocaine 5 % topical patch 1 patch topical DAILY pain #15 ea 03/21/20 (Lidoderm) oxycodone 5 mg tablet 5 mg PO BID PRN pain #10 tabs 03/21/20 cyclobenzaprine 10 mg tablet 10 mg PO TID PRN muscle spasm #30 04/10/20 tabs oxycodone-acetaminophen 5 mg-325 1 tab PO TID PRN pain #7 tabs 12/25/20 mg tablet (Percocet) cyclobenzaprine 10 mg tablet 10 mg PO Q8H PRN Muscle spasm #14 03/27/21 tabs naproxen 500 mg tablet 500 mg PO BID PRN pain #14 tabs 03/27/21 clindamycin HCl 150 mg capsule 150 mg PO TID #21 caps 08/24/22 azithromycin 250 mg tablet 250 mg PO DAILY 4 days #4 tabs 01/24/23 Allergies Allergy/AdvReac Type Severity Reaction Status Date / Time No Known Allergies Allergy Verified 04/10/20 21:16 [No Known Allergies*] Review of Systems Review of Systems: Constitutional : No Fever, No Chills ENT/Mouth : pos loss of voice, pos difficulty swallowing, pos sore throat Eyes: No Eye Pain, No Swelling Cardiovascular : No Chest Pain, No SOB Respiratory : No Cough, No Sputum Gastrointestinal : No Nausea, No Vomiting, No Diarrhea Genitourinary : No Dysuria Musculoskeletal : No Myalgias Skin : No rash Neuro : No Weakness, No Numbness, No Headache PMFSH Past Medical History Attestation statement: The following information was validated with the patient. Source: old records reviewed Medical History Acute injury of anterior cruciate ligament of right knee Acute injury of anterior cruciate ligament of right knee Depression Left shoulder strain Social History Social History (Updated 01/24/23 @ 21:53 by Yuly Sullivan DO) Patient Tobacco Use Status: Tobacco use Unknown Advance Directives: No Advance Directives Information Provided: No Physical Exam ED Vital Signs: Vital Signs - 24 hr 01/24/23 16:15 01/24/23 21:07 Temperature 98.9 F 98.3 F Pulse Rate 73 61 Respiratory Rate 16 18 Blood Pressure 111/27 L 112/54 L Pulse Oximetry 98 98 Oxygen Delivery Method Room Air Room Air BMI result Body Mass Index 29.3 Appearance: Alert. Oriented X3. No acute distress. Eyes: Pupils equal, round and reactive to light. ENT: Pharynx mild erythema, tolerating secretions, hoarse voice Neck: Normal inspection. Neck supple. R anterior cervical lymph node with mild ttp no fluctuance normal ROM no trismus CVS: Normal heart rate and rhythm. Pulses normal. Respiratory: No respiratory distress. Breath sounds normal. Abdomen: Soft and nontender. Skin: Skin warm and dry. Normal skin color. Normal skin turgor. Extremities: No lower extremity edema. No calf ttp Neuro: Oriented X 3. No motor deficit. No sensory deficit. Course Course Course Narrative: This is an RME: Additional HPI, ROS, PE not included below will be deferred to primary provider. This is a 47-year-old female presenting to the emergency department complaints of sore throat x 3 days. nontoxic appearing, hoarse voice noted on examination, oropharynx widely patent plan: viral swabs, strep testing Medical Decision Making Medical Decision Making MDM Narrative: 47 yo female here with 3 days of sore throat, hoarse voice and R lymphadenopathy - no trismus, no signs of ludwigs, no muffled voice, no drooling, not toxic appearing at this time likely pharyngitis vs laryngitis will obtain swabs and start on zpak send home with precautions Differential Diagnosis Differential Diagnoses: The differential diagnosis associated with the presentation includes pharyngitis vs laryngitis Lab Data MDM Lab Attestation statement: I reviewed the patient's lab results. Labs: Lab Results 01/24/23 01/24/23 Range/Units 18:31 21:44 Influenza Type A (PCR) NEGATIVE (Negative) Influenza Type B (PCR) NEGATIVE (Negative) RSV RNA Qual (PCR) NEGATIVE (Negative) SARS-CoV-2 RNA (RT-PCR) NEGATIVE (Negative) S. pyogenes GrpA LILLY Negative (Negative) External Record Review External record reviewed: Office record Prescription Management I considered prescription management with: Antibiotic Discharge Plan Discharge Clinical Impression: Laryngitis Patient Disposition: Home, Self-Care Instructions: Laryngitis (ED) Additional Instructions: viral panel for flu, covid and RSV are negative, strep was negative return for worsening symptoms of pain, fevers, inability to eat or drink - or any other concerns. Prescriptions: New azithromycin 250 mg tablet 250 mg PO DAILY 4 Days Qty: 4 0RF Rx Instructions: start on day 2 of therapy No Action cyclobenzaprine 10 mg tablet 10 mg PO TID PRN (Reason: muscle spasm) Qty: 10 0RF ibuprofen 800 mg tablet 800 mg PO Q8H PRN (Reason: pain) Qty: 14 0RF acetaminophen [Tylenol Extra Strength] 500 mg tablet 1,000 mg PO QID PRN (Reason: fever or pain) Qty: 14 0RF lidocaine [Lidoderm] 5 % adhesive patch,medicated 1 patch topical DAILY Qty: 15 0RF Rx Instructions: leave on most painful area for up to 12 hrs. May be substituted oxycodone 5 mg tablet 5 mg PO BID PRN (Reason: pain) Qty: 10 0RF cyclobenzaprine 10 mg tablet 10 mg PO TID PRN (Reason: muscle spasm) Qty: 30 0RF naproxen 500 mg tablet 500 mg PO BID PRN (Reason: pain) Qty: 14 0RF cyclobenzaprine 10 mg tablet 10 mg PO Q8H PRN (Reason: Muscle spasm) Qty: 14 0RF oxycodone-acetaminophen [Percocet] 5-325 mg tablet 1 tab PO TID PRN (Reason: pain) Qty: 7 0RF clindamycin HCl 150 mg capsule 150 mg PO TID Qty: 21 0RF
[2023-01-24 19:15] LABS: Influenza A PCR NEGATIVE (Negative); Influenza B PCR NEGATIVE (Negative); Resp Syncy Virus RNA Qual PCR NEGATIVE (Negative); SARS COV2 PCR INHOUSE NEGATIVE (Negative)
[2023-01-24 21:07] VITALS: BP 112/54; PULSE 61; RESP 18; TEMP 36.8; O2SAT 98
[2023-01-24 21:59] LABS: IDNOW Serial# 6674DD1D; Strep A Nucleic Acid Negative (Negative)
[2023-01-24] MEDS: Azithromycin 500 MG TABLET PO (22:09)
== END 2023-01-24 22:12 | disposition home or self-care (01) ==
PROVIDERS: Physician Assistant Medical; Emergency Provider Emergency Medicine; PCP Nurse Practitioner Family
DX: J04.0 Acute laryngitis (principal); J02.9 Acute pharyngitis, unspecified; F33.1 Major depressive disorder, recurrent, moderate; M54.2 Cervicalgia; Z20.822 Contact with and (suspected) exposure to COVID-19; Z20.828 Contact with and (suspected) exposure to other viral communicable diseases; Z79.899 Other long term (current) drug therapy
CPT/HCPCS: 0241U; 87651; 99283; 99284

== ENCOUNTER 2023-07-09 17:58 | Emergency (ER) | payer OTHER, SELFPAY ==
[2023-07-09 18:02] VITALS: BP 101/83; PULSE 72; RESP 20; TEMP 36.6; O2SAT 97; BMI 25.1
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
[2023-07-09 18:31] VITALS: BP 101/83; PULSE 72; RESP 20; TEMP 36.6; O2SAT 97
--- OUTSIDE RECORDS SUMMARY | 2023-07-15 08:47 | XMS_ITS | Continuity of Care Document ---
Author Organization [facility] ter Address [address] [place] [address]- Care Team Providers Care Yarn Twister Name Role Phone Betsy GERMAN, Ange Lay Primary Care Physician [phone] [place] [facility] [place]): [place] - 12/23/[address] [address]- Discharge Disposition: A-D/C Home Attending Physician: Kirit Bullard MD Admitting Physician: Kirit Bullard MD Referring Physician: Kirit Bullard MD Allergies, Adverse Reactions, Alerts No Known Medication Allergies Immunizations Given and Recorded Vaccine Date Status Refusal Reason Hepatitis A-Hepatitis B Vaccine 07/17/14 Given hepatitis B adult vaccine 03/14/14 Given hepatitis B adult vaccine 01/16/14 Given Hepatitis A Adult Vaccine 01/16/14 Given tetanus/diphtheria/pertussis, acel(Tdap) 03/23/13 Recorded Medications Acetaminophen = 650 mg, Daily, 0 Refills, Maintenance, 06/29/21 11:04:00 EDT, Partial fill upon patient request if the prescription is for a schedule II opioid drug. Start Date: 06/29/21 Status: Ordered AZO Cranberry Gummies = 500 mg, 2 times a day, 0 Refills, Maintenance, 06/29/21 11:05:00 EDT, Partial fill upon patient request if the prescription is for a schedule II opioid drug. Start Date: 06/29/21 Status: Ordered Biotin See Instructions, By Mouth Daily, 0 Refills, Maintenance, 06/29/21 11:06:00 EDT, Partial fill upon patient request if the prescription is for a schedule II opioid drug. Start Date: 06/29/21 Status: Ordered citalopram 40 mg oral tablet 40 mg, 1, tablet, By Mouth, Daily, for depression, # 30 tablet, Refills 5, Tot. Refills 5, Maintenance, 07/02/16 16:51:23, Route to Pharmacy Electronically, [id number], [id number] Start Date: 07/02/16 Stop Date: 12/29/16 Status: Ordered cyclobenzaprine 10 mg oral tablet 10 mg, 1, tablet, By Mouth, 2 times a day, Refills 0, Maintenance, 06/29/21 11:05:00 EDT, Partial fill upon patient request if the prescription is for a schedule II opioid drug. Start Date: 06/29/21 Status: Ordered Estradiol = 2 mg, 5 times a day, 0 Refills, Maintenance, 08/04/20 13:51:00 EDT, Partial fill upon patient request if the prescription is for a schedule II opioid drug. Start Date: 08/04/20 Status: Ordered estradiol valerate 40 mg/mL intramuscular solution See Instructions, daniella 14days, 0 Refills, Maintenance, 08/04/20 13:52:00 EDT, Partial fill upon patient request if the prescription is for a schedule II opioid drug. Start Date: 08/04/20 Status: Ordered HYDROmorphone Inj (PACU ONLY) 0.5 mg, Injection, IV Push Slowly, Every 5 minutes, up to a maximum of 2 mg, Hold for: RR less than8 OR Sedation Scale of C, PRN for Pain , Severe, Routine, 12/23/21 13:18:00 EST Start Date: 12/23/21 Stop Date: 12/24/21 Status: Discontinued HydrOXYzine HCL Tablet = 25 mg, By Mouth, 3 times a day, 0 Refills, Maintenance, 08/04/20 13:54:00 EDT, Partial fill upon patient request if the prescription is for a schedule II opioid drug. Start Date: 08/04/20 Status: Ordered Lamotrigine 300 mg, By Mouth, Daily, Refills 0, Maintenance, 06/29/21 11:04:00 EDT, Partial fill upon patient request if the prescription is for a schedule II opioid drug. Start Date: 06/29/21 Status: Ordered Latisse 0.03% topical solution 1 applicator, Topically, Daily at bedtime, Pt will pay out of pocket if not covered., # 3 mL, 11 Refills, Maintenance, 05/27/15 13:13:05, 1 applicator Topically Daily at bedtime,Instr:Pt will pay outof pocket if not covered. Start Date: 05/27/15 Status: Ordered metFORMIN 1000 mg oral tablet 1 tablet = 1,000 mg, By Mouth, 2 times a day, # 60 tablet, 0 Refills, Maintenance, 08/04/20 13:53:00 EDT, Tablet, Partial fill upon patient request if the prescription is for a schedule II opioid drug. Start Date: 08/04/20 Status: Ordered Multivitamin Daily, 0 Refills, Maintenance, 06/29/21 11:05:00 EDT, Partial fill upon patient request if the prescription is for a schedule II opioid drug. Start Date: 06/29/21 Status: Ordered Naltrexone = 25 mg, 2 times a day, 0 Refills, Maintenance, 06/29/21 11:03:00 EDT, Partial fill upon patient request if the prescription is for a schedule II opioid drug. Start Date: 06/29/21 Status: Ordered Naproxen = 500 mg, By Mouth, 2 times a day, as needed for pain, 0 Refills, Maintenance, 08/15/20 7:21:00 EDT, Partial fill upon patient request if the prescription is for a schedule II opioid drug. Start Date: 08/15/20 Status: Ordered Oxcarbazepine = 600 mg, By Mouth, 2 times a day, 0 Refills, Maintenance, 06/29/21 11:04:00 EDT, Partial fill uponpatient request if the prescription is for a schedule II opioid drug. Start Date: 06/29/21 Status: Ordered Oxycodone = 5 mg, By Mouth, Every 4 hours, PRN Pain , Moderate, 0 Refills, Maintenance, 07/20/21 9:52:00 EDT,Partial fill upon patient request if the prescription is for a schedule II opioid drug. Start Date: 07/20/21 Status: Ordered oxyCODONE 5 mg oral tablet 5 mg, 1, tablet, By Mouth, Every 4 hours, PRN, Refills 0, Tot. Refills 0, Maintenance, Pain , Mild,12/23/21 12:57:00 EST, Partial fill upon patient request if the prescription is for a schedule II opioid drug. Start Date: 12/23/21 Status: Ordered OxyCODONE IR Tablet 5 mg, Tablet, By Mouth, Every 4 hours, in PACU ONLY, if patient can tolerate PO, PRN for Pain , Mild, Routine, 12/23/21 13:18:00 EST Start Date: 12/23/21 Stop Date: 12/24/21 Status: Discontinued Problem List Condition Confirmation Course Effective Dates Status Health St atus Informant Chronic bipolar disorder Confirmed Active Intermittent vertigo 1 Confirmed Active 1MRI of brain negative, being evaluated by Neuro Vital Signs Most recent to oldest [Reference Range]: 1 2 3 Weight 89.5 kg (12/23/21 10:39 AM) Oxygen Saturation [94-100 %] 94 % (12/23/21 2:15 PM) 93 % *L* (12/23/21 2:00 PM) 92 % *L* (12/23/21 1:45 PM) Pulse Rate [55-90 bpm] 70 bpm (12/23/21 10:39 AM) Blood Pressure [90-138/55-84 mm Hg] 120/65mm Hg (12/23/21 2:00 PM) 109/76mm Hg (12/23/21 1:45 PM) 117/60mm Hg (12/23/21 1:30 PM) Respiratory Rate [16-30 br/min] 10 br/min *L* (12/23/21 2:00 PM) 14 br/min *L* (12/23/21 1:55 PM) 10 br/min *L* (12/23/21 1:30 PM) Temperature [96.8-100.4 DegF] 98.5 DegF (12/23/21 2:00 PM) 98 DegF (12/23/21 1:15 PM) 97.6 DegF (12/23/21 10:39 AM) Liters per Minute 6 L/min (12/23/21 1:30 PM) 6 L/min (12/23/21 1:15 PM) 2 L/min (12/23/21 11:00 AM) Mode of Delivery (Oxygen) Room air (12/23/21 2:15 PM) Room air (12/23/21 2:00 PM) Room air (12/23/21 1:45 PM) Blood pressure sites Arm, left (12/23/21 2:00 PM) Arm, left (12/23/21 1:45 PM) Arm, left (12/23/21 1:30 PM) Temperature Route Temporal (12/23/21 2:00 PM) Temporal (12/23/21 1:15 PM) Temporal (12/23/21 10:39 AM) Dry Weight 89.5 kg (12/23/21 10:39 AM) Weight Obtained Via Standing scale (12/23/21 10:39 AM) Dry Weight Obtained Via Standing scale (12/23/21 10:39 AM) Social History Social History Type Response Smoking Status Never smoker entered on: 07/11/13 Sex Note * Harini Romero RN: PERFORM Event Display: Discharge/Transfer Note Hospital Authored Date: [id number] Nursing Discharge Note Entered On: 12/23/2021 15:08 EST Performed On: 12/23/2021 15:07 EST by Harini Romero RN Nursing Discharge Note 2 Discharge Time : 12/23/2021 15:07 EST Discharge Level of Care at Discharge : Home/Penitentiary/Foster Care Patient Left Unit Via : Wheelchair Patient Accompanied Off Unit with : Parent DC Instructions Provided & Signed by Pt : Yes Patient Understands D/C Instructions : Yes Patient Instructions Discharge Signed : Yes Did Pt have Specialty Bed or Wound Vac : No Harini Romero RN - 12/23/2021 15:07 EST * Harini Romero RN: PERFORM Event Display: Patient Education/Instruction Authored Date: [id number] Inpatient Adult Discharge Instructions [address] [address] Name: SERENA VO : 1975 Visit: 12/23/2021 09:23:00 Current Date: 12/23/2021 14:17 Account: [id number] Inpatient Adult Discharge Instructions We would like to thank you for allowing us to assist you with your healthcare needs. The following includes patient education materials and information regarding your injury/illness. Our entire staffstrives to provide an excellent experience for our patients and their families. PLEASE ENSURE YOU FOLLOW-UP PER THE INSTRUCTIONS BELOW! ?? YOUR OPINION IS IMPORTANT TO US! Please complete the survey you may receive by mail or email. Your feedback will be used to make improvements to the healthcare experiences of our patients and their families. Surveys are administered by [employer] ?? If further treatment with your primary care physician or another doctor is recommended, it is important for you to keep the appointment. Call your primary care physician or return to the Emergency Department immediately if your condition worsens, fails to improve, or new symptoms develop. If you need to find a doctor, you can call [facility] [employer] for a referral at [phone] or toll free at [phone] ([phone]) or log in to [email or web address] ?? You can view and manage your care through the patient portal or by using a health care lucero of your choosing. [facility] is a website that allows you to securely view your medical information including your hospital discharge summary, office visit summaries, medications and follow-up visits. You can also request appointments, renew medications, and request access to your medical information using a health care lucero of your choosing, or just ask a question. You can enroll at [email or web address] or register during your next office visit. You have been discharged from [facility], Patient Care Unit: [facility]. If you have any questions regarding these instructions after you leave, please call us and we will be happy to assist you. [facility] Your Care Team Attending Physician Juan Miguel AGUILAR, Kirit Hamilton Discharging Providers Kirit Bullard MD Reason for Admission RT SHOULDER MASSIVE ROTATOR CUFF TEAR REVERSE DS Your Diagnosis Complete tear of right rotator cuff Tests Performed Below is a partial list of the tests performed during your hospitalization. You may have had other tests and procedures not included in this list. Please discuss all test results with your provider. COVID-19 Antigen POC?-- Results Pending -- GLUCOSE POC ? You will be contacted within 72 hours with your results. Primary Care Provider Ange Meyer NP Advance Directive Health Care Proxy on File Yes - Health Care Proxy No qualifying data available. Discharge Vitals Temperature: 98.5 DegF Weight: 89.5 kg Pulse Rate: 70 bpm ?? Respiratory Rate:??10 br/min??Low ?? Systolic Blood Pressure: 120 mm Hg ?? Diastolic Blood Pressure: 65 mm Hg ?? Oxygen Saturation: 94 % ?? Studies Pending All tests and labs ordered during this hospital stay have been completed unless listed below. Please discuss all pending results with your provider listed above in these instructions. ?? COVID-19 Antigen POC What to do next Instructions From Your Doctor Discharge Orders Instructions from your Care Team ?? dangle arm and elbow, wrist and hand range of motion to tolerance apply ice, on 20 minutes and off 40 minutes, while awake for 48 hours or as needed may shower in 1 days OR per MD instructions no driving per MD Discharge Instructions Please see additional discharge instruction sheet. prescriptions eprescribed. Last dose Tylenol given at 2:00pm. next available dose 8:00pm. Last dose Oxycodone 2:00pm. Next available dose 8:00pm. You Need to Schedule the Following Appointments Follow Up with??Kirit Bullard When?? Where: [address] [place] [address] [address] [facility] [place] [address] [facility] (1) Follow Up with??nAge Meyer When??In 0 days Where: [address] [place] [address] [facility] (1) Discharge Medications JUSTICE SERENA VO :1975 Visit Date:12/23/2021 Medications: Please continue your medications until treatment is completed or stopped by your provider. Medications not listed below should be discontinued. Discuss any questions related to medications with your provider. What How Much When Instructions Next Dose Changed Oxycodone 5 Milligram Oral Every 4 hours as needed for Pain , Moderate Changed Oxycodone (oxyCODONE 5 mg oral tablet) 1 tab(s) Oral Every 4 hours as needed for Pain , Mild Unchanged Acetaminophen 650 Milligram Daily Unchanged bimatoprost topical ophthalmic (Latisse 0.03% topical solution) 1 applicator Topically Daily at Bedtime Pt will pay out of pocket if not covered. ?? Unchanged Biotin See instructions By Mouth Daily ?? Unchanged Citalopram (citalopram 40 mg oral tablet) 1 tab(s) Oral Daily Duration: 30 Days for depression ?? Unchanged Cranberry (AZO Cranberry Gummies) 500 Milligram Twice a day Unchanged Cyclobenzaprine (cyclobenzaprine 10 mg oral tablet) 1 tab(s) Oral Twice a day Unchanged Estradiol 2 Milligram 5 times a day Unchanged Estradiol (estradiol valerate 40 mg/ mL intramuscular solution) See instructions evry 14days ?? Unchanged HydrOXYzine (HydrOXYzine HCL Tablet) 25 Milligram Oral 3 times a day Unchanged Lamotrigine 300 Milligram Oral Daily Unchanged Metformin (metFORMIN 1000 mg oral tablet) 1 tab(s) Oral Twice a day Unchanged Multivitamin Daily Unchanged Naltrexone 25 Milligram Twice a day Unchanged Naproxen 500 Milligram Oral Twice a day as needed for pain ?? Unchanged Oxcarbazepine 600 Milligram Oral Twice a day Test Results Below is a partial list of the most recent Laboratory test results done prior to this discharge. You may have had other tests and procedures not included in this list. Please discuss all test resultswith your provider. GLUCOSE POC (12/23/2021) ???Glucose, POC - 79 mg/dL Allergies (NKA means No Known Allergies) No Known Medication Allergies Problems Active Problems??(5) Chronic bipolar disorder?? Gender dysphoria?? Insomnia?? Intermittent vertigo?? Multiple caries?? Education Materials Below is the list of Educational Leaflet Providered with your Discharge Instructions. Surgery Medical Daystay Surgical Overnight Discharge Instructions?? Valuables and Belongings I fully understand and agree that [facility] accepts no responsibility for all my personal property including clothing, toilet articles, radios, jewelry, dentures, hearing aids, rings, money, or any other property that is in my possession or is brought to me after admission. I understand certain valuables may be placed in a hospital safe for a short period of time. I understand that the hospital is not liable for loss or damage due to accident, fire, or other natural occurrence while said property is in the safe. I accept full responsibility for any personal property that I keep with me, and will not hold the hospital responsible in case of loss or disappearance. I acknowledge that i have been encouraged to send valuables and belongings home. ?? Review of Valuable and Belonging List: With patient Possessions released to: items under stretcher to pacu Date for Pt to Sign Valuables/Belongings: 12/23/21 10:39:00 ?? Valuables & Belongings ?? Clothes Electronic devices Jewelry Monetary Items Personal devices Miscellaneous Medications (Valuables) Valuables at Bedside Jacket, Pants, Shirt, Shoes, Undergarments Cell phone, Other: Headphones Necklace, Rings Wallet ? Valuables Sent Home ? Valuables Sent to Security ? Other Discharge Information ? Pulmonary Rehab Status?? Pulmonary Rehab Discharge Status?? Respiratory Rate:??10 br/min??Low ? Common Emergency Awareness Tips IS IT A STROKE? Act FAST and Check for these signs: FACE Does the face look uneven? ARM Does one arm drift down? SPEECH Does their speech sound strange? TIME Call at any sign of stroke ?? Heart Attack Signs Chest discomfort: Most heart attacks involve discomfort in the center of the chest and lasts more than a few minutes, or goes away and comes back. It can feel like uncomfortable pressure, squeezing, fullness or pain. Discomfort in upper body: Symptoms can include pain or discomfort in one or both arms, back, neck, jaw or stomach. Shortness of breath: With or without discomfort. Other signs: Breaking out in a cold sweat, nausea, or lightheaded. Remember, MINUTES DO MATTER. If you experience any of these heart attack warning signs, call to get immediate medical attention! ?? Smoking can increase your chances of developing chronic health problems and can cause harmful effects to other family members in your house. If you smoke, you are strongly encouraged to quit. Please call [employer] [facility] at [phone] or 2-138-[employer] (3659) or log in to [email or web address] for referrals to smoking cessation programs. ?? The National Suicide Prevention Hotline is available 30/08 if you or someone you know needs to find a reason to keep living. By calling 6-536-403-[employer] (1342) you'll be connected to a skilled, trained counselor at a crisis center in your area. INPATIENT DISCHARGE INSTRUCTIONS SIGNATURE PAGE FILI REALIGIA Location:[facility] Registration Date and Time:12/23/2021 09:23 EST Primary Care Physician: Ange Meyer NP, I SERENA REA, have received the above patient education materials/instructions and have verbalized understanding. If ambulance or transport services are being used I further acknowledge being given a choice of service. ?? If you need to contact me, please call me at this number: . Patient/Molder Wax Ball Name: Patient/Molder Wax Ball Signature: Relationship to Patient: Witness Name/Signature: Date: * Harini Romero RN: PERFORM, SIGN, VERIFY Event Display: Patient Education Handout Authored Date: [id number] * Harini Romero RN: PERFORM Event Display: Patient Education Leaflets Authored Date: [id number] Surgery Medical Daystay Surgical Overnight Discharge Instructions ?? 295 Medical Daystay/Surgical Overnight Discharge Instructions ? Since your coordination and judgment may be altered by medication and/or anesthesia, a responsible adult must drive you home from the hospital. ? If you have received medication for pain or sedation while under our care, you should not drive, operate machinery, drink alcohol, or sign any legal documents for 24 hours.?? You should have someone with you at home tonight. ? Remain at home the day of discharge.?? You may be up and about unless otherwise instructed by your physician. ? You may resume your daily prescription medication schedule.?? Any depressant medication should be avoided for 24 hours unless otherwise instructed by your surgeon or anesthesiologist. ? Call your physician for a follow-up appointment.? If you experience unusual or severe pain not relied by your pain medication, excessive bleedingor drainage, persistent nausea and vomiting, excessive swelling or redness, foul odor from incisionsite or fever over 100.6F, you need to call your physician. ? A follow-up phone call by a nurse will be made the day after your procedure.?? If you have stayed with us over night, you will not be receiving a follow-up phone call. ? Nausea and vomiting are a common side effect of prescription pain medication.?? We recommend that pills are not taken on an empty stomach.?? While taking any prescription pain medication you should not drive or drink alcohol. ? Patient Care team information Care Team Personnel Name: Betsy GERMAN, Ange Lay Position: Reference Physician Member Role: PCP Address: Address: [address] [place], [place] [id number]- Care Team Related Persons Name: YULISA VO Address: [address] [address] Name: VEENA VO Address: [address] [address]
--- OUTSIDE RECORDS SUMMARY | 2023-07-15 08:47 | XMS_ITS | Continuity of Care Document ---
Author Organization [facility] ter Address [address] [place] [address]- Care Team Providers Care Want Ad Supervisor Name Role Phone Betsy GERMAN, Ange Lay Primary Care Physician Encounter [facility] [place] Date(s): 11/05/21 - 12/12/[address] [address] Attending Physician: Kirit Bullard MD Admitting Physician: [...] Maintenance, 07/02/16 16:51:23, Route to Pharmacy Electronically, [id number], [id number] Start Date: 07/02/16 Stop Date: 12/29/16 Status: [...] estradiol valerate 40 mg/mL intramuscular solution See Instructionsdaniella 14days, 0 Refills, Maintenance, 08/04/20 13:52:00 EDT, Partial fill upon patient request if the prescription is for a schedule II opioid drug. Start Date: 08/04/20 Status: Ordered HydrOXYzine HCL Tablet = 25 mg, By [...] opioid drug. Start Date: 07/20/21 Status: Ordered Problem List Condition Confirmation Course Effective Dates Status [facility] atus Informant Chronic bipolar disorder Confirmed Active Intermittent vertigo 1 Confirmed Active 1MRI of brain negative, being evaluated by Neuro Social History Social History Type Response Smoking Status Never smoker entered on: 07/11/13 Sex Patient Care team information Personnel Name: Ange Meyer NP Address: Address: [address] [place] [id number]
== END 2023-07-09 18:32 | disposition home or self-care (01) ==
LOC: HO.ED 18:12
PROVIDERS: Emergency Provider Emergency Medicine; PCP Nurse Practitioner Family
DX: M54.2 Cervicalgia (principal); S16.1XXD Strain of muscle, fascia and tendon at neck level, subsequent encounter; V49.9XXD Car occupant (driver) (passenger) injured in unspecified traffic accident, subsequent encounter; K08.89 Other specified disorders of teeth and supporting structures
CPT/HCPCS: 99282; 99283

== ENCOUNTER 2023-08-20 21:03 | Emergency (ER) | payer OTHER, SELFPAY ==
[2023-08-20 21:10] VITALS: BP 150/57; PULSE 68; RESP 18; TEMP 36.6; O2SAT 98; BMI 29.5
--- NOTE | 2023-08-20 22:52 | ED_ITS ---
HPI - Dental/Oral General Chief complaint: Dental/Oral Stated complaint: Dental pain/Nausea Time Seen by Provider: 08/20/23 22:52 Source: patient Mode of arrival: ambulatory Limitations: no limitations History of Present Illness ED Provider: freddie RAMIREZ Narrative: Patient's history of dental caries status post root canal in 01/29 after few months started having the pain took a course of antibiotics 2 months ago got better again started having the pain for last few days seen the dentist possible infected root canal plan for re done of root canal Related Data Previous Rx's ?Medication ?Instructions ?Recorded acetaminophen 500 mg tablet 1,000 mg (2 x 500 mg) PO QID PRN 03/21/20 (Tylenol Extra Strength) fever or pain #14 tabs cyclobenzaprine 10 mg tablet 10 mg PO TID PRN muscle spasm #10 03/21/20 tabs ibuprofen 800 mg tablet 800 mg PO Q8H PRN pain #14 tabs 03/21/20 lidocaine 5 % topical patch 1 patch topical DAILY pain #15 ea 03/21/20 (Lidoderm) oxycodone 5 mg tablet 5 mg PO BID PRN pain #10 tabs 03/21/20 cyclobenzaprine 10 mg tablet 10 mg PO TID PRN muscle spasm #30 04/10/20 tabs oxycodone-acetaminophen 5 mg-325 1 tab PO TID PRN pain #7 tabs 12/25/20 mg tablet (Percocet) cyclobenzaprine 10 mg tablet 10 mg PO Q8H PRN Muscle spasm #14 03/27/21 tabs naproxen 500 mg tablet 500 mg PO BID PRN pain #14 tabs 03/27/21 clindamycin HCl 150 mg capsule 150 mg PO TID #21 caps 08/24/22 azithromycin 250 mg tablet 250 mg PO DAILY 4 days #4 tabs 01/24/23 amoxicillin 875 mg-potassium 1 tab PO BID #14 tabs 07/09/23 clavulanate 125 mg tablet cyclobenzaprine 10 mg tablet 10 mg PO TID PRN muscle spasm #10 07/09/23 tabs ibuprofen 600 mg tablet 600 mg PO Q8H PRN fever or pain 07/09/23 #20 tabs amoxicillin 875 mg-potassium 1 tab PO BID #20 tabs 08/20/23 clavulanate 125 mg tablet oxycodone 5 mg tablet 5 mg PO Q6H PRN pain #20 tabs 08/20/23 Allergies Allergy/AdvReac Type Severity Reaction Status Date / Time No Known Allergies Allergy Verified 08/20/23 21:13 [No Known Allergies*] Review of Systems 2 Review of Systems: Yes all other systems are reviewed and are negative [facility] Past Medical History Medical History Acute injury of anterior cruciate ligament of right knee Acute injury of anterior cruciate ligament of right knee Depression Left shoulder strain Social History Social History Patient Tobacco Use Status: Tobacco use Unknown Advance Directives: No Advance Directives Information Provided: No Do you have a plan to hurt others: No Plan Physical Exam 2 Vital Signs: Vital Signs: Last Vital Signs Temp 98 F 08/20/23 21:10 Pulse 68 08/20/23 21:10 Resp 18 08/20/23 21:10 BP 150/57 H 08/20/23 21:10 Pulse Ox 98 08/20/23 21:10 O2 Del Method Room Air 08/20/23 21:10 BMI result Body Mass Index 29.5 HEENT: Teeth image: 1. [place]end[place] 19. No significant gum swelling cap is in place Medical Decision Making Medical Decision Making MDM Narrative: Patient with pulpitis of the root canal tooth 19. Will prescribe Augmentin and pain medication advised to follow with dentist Discharge Plan Discharge Clinical Impression: Toothache Patient Disposition: Home, Self-Care Instructions: Toothache (ED) Additional Instructions: Take antibiotics and pain medicine as prescribed Follow up with your dentist Prescriptions: New amoxicillin-pot clavulanate 875-125 mg tablet 1 tab PO BID Qty: 20 0RF oxycodone 5 mg tablet 5 mg PO Q6H PRN (Reason: pain) Qty: 20 0RF Rx Instructions: Partial Fill upon patient request. No Action cyclobenzaprine 10 mg tablet 10 mg PO TID PRN (Reason: muscle spasm) Qty: 10 0RF ibuprofen 800 mg tablet 800 mg PO Q8H PRN (Reason: pain) Qty: 14 0RF acetaminophen [Tylenol Extra Strength] 500 mg tablet 1,000 mg PO QID PRN (Reason: fever or pain) Qty: 14 0RF lidocaine [Lidoderm] 5 % adhesive patch,medicated 1 patch topical DAILY Qty: 15 0RF Rx Instructions: leave on most painful area for up to 12 hrs. May be substituted oxycodone 5 mg tablet 5 mg PO BID PRN (Reason: pain) Qty: 10 0RF cyclobenzaprine 10 mg tablet 10 mg PO TID PRN (Reason: muscle spasm) Qty: 30 0RF naproxen 500 mg tablet 500 mg PO BID PRN (Reason: pain) Qty: 14 0RF cyclobenzaprine 10 mg tablet 10 mg PO Q8H PRN (Reason: Muscle spasm) Qty: 14 0RF oxycodone-acetaminophen [Percocet] 5-325 mg tablet 1 tab PO TID PRN (Reason: pain) Qty: 7 0RF amoxicillin-pot clavulanate 875-125 mg tablet 1 tab PO BID Qty: 14 0RF ibuprofen 600 mg tablet 600 mg PO Q8H PRN (Reason: fever or pain) Qty: 20 0RF cyclobenzaprine 10 mg tablet 10 mg PO TID PRN (Reason: muscle spasm) Qty: 10 0RF clindamycin HCl 150 mg capsule 150 mg PO TID Qty: 21 0RF azithromycin 250 mg tablet 250 mg PO DAILY 4 Days Qty: 4 0RF Rx Instructions: start on day 2 of therapy Print Language: Mohawk
[2023-08-20] MEDS: oxyCODONE HCl Immed Release 5 MG TABLET 10 MG PO (23:28)
[2023-08-20] MEDS: Amoxicillin/Potassium Clav 875 MG TABLET PO (23:28)
[2023-08-20 23:31] VITALS: BP 150/57; PULSE 68; RESP 18; TEMP 36.6; O2SAT 98
== END 2023-08-20 23:31 | disposition home or self-care (01) ==
PROVIDERS: Emergency Provider Internal Medicine; PCP Nurse Practitioner Family
DX: K08.89 Other specified disorders of teeth and supporting structures (principal)
CPT/HCPCS: 99283